=== PATIENT | female | born 1950 | race Caucasian/White ===

== ENCOUNTER → 2018-08-07 | Outpatient (CLI) | payer MEDICARE, BC ==
--- NOTE | 2018-08-07 15:45 | Diagnostic Imaging Report ---
ADDENDUM #1 Indication: Osteoporosis Signed by: Dr. Raji Hilton MD on 08/14/2018 1:09 PM ORIGINAL REPORT Exam: Bone mineral density study (DEXA). History: Osteopenia. Comparison: 05/03/2016 Evaluation of the left hip and lumbar spine was performed utilizing DEXA Hologic bone densitometer. The study is technically adequate. FINDINGS: Left hip total bone mineral density: 0.748 gm/cm2, T-score is -1.6, Z-score is -0.1. Left hip femoral neck bone mineral density: 0.641 gm/cm2, T-score is -1.9, Z-score is -0.1. Percentage change since previous: +1.2%. Lumbar spine total bone mineral density: 0.781 gm/cm2, T-score is -2.4, Z-score is -0.3. Percentage change since previous: -1.8%. IMPRESSION: 1. Osteopenia. Fracture risk is increased. 10 -year fracture risk per WHO Fracture Risk Assessment Tool (FRAX): Major osteoporotic fracture is 11 %. Hip fracture is 1.9 %. The above fracture probability is calculated for an untreated patient. Fracture probably may be lower if the patient has received treatment. All treatment decisions require clinical judgment and consideration of individual patient factors, including patient preferences, comorbidities, previous drug use and risk factors not captured in the FRAX model (e.g. frailty, falls, vitamin D deficiency, increased bone turnover, interval significant decline in BMD). The patient's fracture risk is compared to an age-matched control. Medical evaluation for secondary causes of low bone bone mineral density may be appropriate. Correlate clinically for the necessity and timing of the next bone mineral density study. Signed by: Dr. Raji Hilton MD on 08/07/2018 3:41 PM
== END ==
LOC: DX 14:38
PROVIDERS: ATTEND Internal Medicine Medical Oncology
DX: C50.011 Malignant neoplasm of nipple and areola, right female breast (principal); M81.8 Other osteoporosis without current pathological fracture
CPT/HCPCS: 77080

== ENCOUNTER → 2020-07-24 | Outpatient (CLI) | payer MEDICARE, BC | LOC: DX 09:59 | PROVIDERS: ATTEND Internal Medicine Medical Oncology | DX: C50.119 Malignant neoplasm of central portion of unspecified female breast (principal); M85.89 Other specified disorders of bone density and structure, multiple sites | CPT/HCPCS: 77080 ==

== ENCOUNTER → 2022-07-07 | Outpatient (CLI) | payer MEDICARE, BC | LOC: DX 11:40 | PROVIDERS: ATTEND Internal Medicine Medical Oncology | DX: M85.88 Other specified disorders of bone density and structure, other site (principal); C50.011 Malignant neoplasm of nipple and areola, right female breast | CPT/HCPCS: 77080 ==

== ENCOUNTER 2023-02-16 09:24 | Emergency (ER) | payer MEDICARE, BC ==
[~2023-02-16] VITALS: Ht 165.1 cm; Wt 68.0 kg
[2023-02-16] MEDS ORDERED: KETOROLAC TROMETHAMINE 30 MG/ML VIAL ONE (10:12)
[2023-02-16] MEDS ORDERED: METHOCARBAMOL 500 MG TAB PO ONE (10:15)
[2023-02-16] MEDS ORDERED: KETOROLAC TROMETHAMINE 30 MG/ML VIAL IM ONE (10:15)
[2023-02-16] MEDS ORDERED: LIDOCAINE 4% PATCH TP ONE (10:15)
[2023-02-16] MEDS ORDERED: METHOCARBAMOL500 MG PO (11:53)
== END 2023-02-16 12:01 | disposition home or self-care (01) ==
LOC: ER 09:37
DX: M54.50 Low back pain, unspecified (principal); Z85.3 Personal history of malignant neoplasm of breast
CPT/HCPCS: 72110; 99283; J1885

== ENCOUNTER → 2024-07-23 | Outpatient (REF) | payer MEDICARE, BC ==
[~2024-07-23] MED LIST: METHOCARBAMOL500 MG PO
== END ==
LOC: DX 10:15
PROVIDERS: ATTEND Internal Medicine Medical Oncology
DX: M85.88 Other specified disorders of bone density and structure, other site (principal); C50.011 Malignant neoplasm of nipple and areola, right female breast
CPT/HCPCS: 77080